=== PATIENT | male | born 1985 | race African-American/Black ===

== ENCOUNTER 2018-08-18 16:06 | Emergency (ER) | payer OTHER ==
[2018-08-18 19:38] VITALS: BP 133/90
== END 2018-08-18 19:59 | disposition left against medical advice (07) ==
LOC: ED 16:06
DX: R19.7 Diarrhea, unspecified (principal); R53.83 Other fatigue; R50.9 Fever, unspecified; Z53.21 Procedure and treatment not carried out due to patient leaving prior to being seen by health care provider